=== PATIENT | male | born 1990 | race African-American/Black ===

== ENCOUNTER 2016-12-02 12:12 | Emergency (ER) | payer OTHER ==
[~2016-12-02] VITALS: Ht 182.9 cm; Wt 99.8 kg
--- NOTE | ~2016-12-02 | CR195 ---
[facility] A Service of [facility] & [facility] RADIOLOGY TEXT RESULTS PATIENT: MARIAA LESLIE LOCATION: [facility] : [birth year] UNIT #: [id number] AGE: [address]: Radha Valadez APRN SEX: M ORDER DR: [id number] [facility] [address] [place], [place] [address] [id number] E MR#: [id number] Acc #: [id number] NAME: MARIAA LESLIE. : 1990 SEX: M STUDY DATE/TIME: 12/02/2016 13:25 UNIT: CFTX ROOM: STUDY DESCRIPTION: CR Neck Soft Tissue Attending Physician: Radha Valadez A.P.R.N. Ordering Physician: Ed Doctor [id number] [facility] Primary Care Physician: [facility] MEDICAL IMAGING REPORT This report is preliminary unless electronic signature is present EXAM 2-view neck INDICATIONS Choked on chicken bone. Foreign bodies sensation. FINDINGS 2 views of the neck soft tissue without comparison. No foreign body is identified. Prevertebral soft tissues are within normal limits. IMPRESSION No evidence of radiopaque foreign body. Dictated by... Ahmet Pro M.D. THIS IS AN ELECTRONICALLY VERIFIED REPORT Ahmet Pro M.D. at 12/03/2016 2:49 PM RPDanelle/eriberto TD: 12/02/2016 18:29 JOB #: [id number] MEDICAL IMAGING REPORT Page 1 of 1 COPY
[2016-12-03] MEDS ORDERED: NO MEDICATIONS (15:51)
[2016-12-03] MEDS ORDERED: OMEPRAZOLE40 M1 PO (17:00)
== END 2016-12-02 15:30 | disposition home or self-care (01) ==
LOC: CED 12:12 → CFTX 12:12 → CED 13:41 → CFTX 13:41
DX: I10 Essential (primary) hypertension (principal); Z91.14 Patient's other noncompliance with medication regimen; R07.0 Pain in throat; F41.9 Anxiety disorder, unspecified; Z88.8 Allergy status to other drugs, medicaments and biological substances
CPT/HCPCS: 70360; 99283

== ENCOUNTER → 2016-12-03 | Day surgery (SDC) | payer OTHER ==
[~2016-12-03] MED LIST: NO MEDICATIONS; OMEPRAZOLE40 M1 PO
--- NOTE | ~2016-12-03 | OR ---
Unit #: [id number] #: [id number] Patient: MARIAA LESLIE MONT[id number] [facility] [address] [place], [place] [address] [id number] O MR#: [id number] NAME: MARIAA LESLIE MONTRE ROOM: Date of Procedure: 12/03/2016 Admission Date: 12/03/2016 Surgeon: Germán Nino M.D. : 1990 Attending Physician: Germán Nino M.D. Referring Physician: Germán Nino M.D. Primary Care Physician: [facility] OPERATIVE REPORT PREOPERATIVE DIAGNOSES The patient had foreign body impaction of meat yesterday. He still having some odynophagia and therefore come for an endoscopy. He was seen in emergency room yesterday. PROCEDURES PERFORMED Upper gastrointestinal endoscopy. POSTOPERATIVE DIAGNOSES The patient had grade 3 distal erosive or ulcerative esophagitis, otherwise examination was normal up to third part of duodenum. Specifically, no stricture or mucosal ring was present. No foreign body was seen in the esophagus. RECOMMENDATIONS The patient is advised to use omeprazole 40 mg p.o. daily on a long-term basis. SEDATION USED MAC. DESCRIPTION OF PROCEDURE Following detailed explanation of the potential risks and complications of an upper endoscopy, namely perforation, bleeding, and complications related to sedation, the patient was brought to GI lab and laid in the left lateral decubitus position. Lubricated tip of the Olympus video upper endoscope was passed through the bite block into the proximal esophagus under direct vision. The entire esophageal mucosa was examined and the patient was noted to have grade 3 distal ulcerative esophagitis involving the mid and distal esophagus. The ulceration and erosions ascended as far as mid esophagus. No stricture or mucosal ring was seen. The scope was then advanced into the gastric cavity and the latter was insufflated. Mucosa of the fundus, body, and antrum examined and appeared unremarkable. Pylorus was intubated with visualization of normal duodenal bulb and second and third part of the duodenum. Upon withdrawal and retroflexion, incisura, cardia, and greater curve examined and no additional findings noted. The scope was then withdrawn in the distal esophagus. The entire esophageal mucosa was examined all the way up to pharynx. No additional findings noted. The patient tolerated the procedure without any postprocedure complications. Unit #: [id number] #: [id number] Patient: MARIAA LESLIE MONTRE Dictated by... Vee Villa/khai TD: 12/03/2016 17:47 JOB #: [id number] OPERATIVE REPORT Page 1 of 1 X Germán Nino MD PROCEDURE OPERATIVE NOTE
== END | disposition home or self-care (01) ==
LOC: CRAD 15:06 → COPS 15:06 → EDSTATUS 15:25
DX: K22.10 Ulcer of esophagus without bleeding (principal); F12.10 Cannabis abuse, uncomplicated; Z88.8 Allergy status to other drugs, medicaments and biological substances
CPT/HCPCS: J2250